=== PATIENT | female | born 1950 | race Caucasian/White ===

== ENCOUNTER 2020-03-04 11:59 | Outpatient (REF) | payer MEDICARE, SELFPAY | END 2020-03-04 12:00 | disposition home or self-care (01) | LOC: HO.WFDLDS 11:59 | PROVIDERS: Visit Provider Internal Medicine | DX: Z20.828 Contact with and (suspected) exposure to other viral communicable diseases (principal) | CPT/HCPCS: 36415; 87635 ==

== ENCOUNTER 2020-08-23 09:55 | Outpatient (REF) | payer MEDICARE, SELFPAY | END 2020-08-23 09:56 | disposition home or self-care (01) | LOC: HO.LAB 09:55 | PROVIDERS: Visit Provider Nurse Practitioner Family | DX: Z13.89 Encounter for screening for other disorder (principal) | CPT/HCPCS: 36415; U0003 ==

== ENCOUNTER 2020-08-23 09:56 | Outpatient (REF) | payer MEDICARE, SELFPAY ==
--- NOTE | ~2020-08-23 | XR_ITS ---
EXAMINATION: XR CHEST CLINICAL INFORMATION: Cough. COMPARISON: None TECHNIQUE: 2 views of the chest were obtained. FINDINGS: The lungs are well-expanded and clear of acute process. The heart size and pulmonary vascularity is normal. There are surgical ernesto in the left anterior axilla and chest wall from previous intervention. There is mild ventral spondylosis. No lytic process. XR/XR chest 2V IMPRESSION: Unremarkable chest exam.
== END 2020-08-23 09:57 | disposition home or self-care (01) ==
LOC: HO.HMGCX 09:56
PROVIDERS: PCP Internal Medicine; Visit Provider Nurse Practitioner Family
DX: R05 Cough (principal); J98.8 Other specified respiratory disorders
CPT/HCPCS: 36415; 71046; U0003

== ENCOUNTER 2020-10-04 10:23 | Outpatient (REF) | payer MEDICARE, SELFPAY ==
[2020-10-04 11:19] LABS: MANUAL DIFF FLAG NO
[2020-10-04 11:32] LABS: Basophils Percent Auto 0.4 % (0-2); Eosinophils Absolute Auto 0.3 X10*3/uL (0.0-0.4); Eosinophils Percent Auto 2.7 % (0-4); Hematocrit 43.7 % (37-47); Hemoglobin 14.2 g/dl (12.0-16.0); Imm Gran Abs Auto 0.04 X10*3/uL (0.00-0.03); Imm Gran Pct Auto 0.4 % (0.0-0.4); Lymphocytes Absolute Auto 2.4 X10*3/uL (1.2-4.9); Lymphocytes Percent Auto 25.6 % (20-40); Mean Corpuscular HGB Conc 32.5 g/dl (31.0-35.0); Mean Corpuscular Hemoglobin 31.3 pg (27.0-33.0); Mean Corpuscular Volume 96.5 fL (80-98); Mean Platelet Volume 10.3 fL (9.4-12.3); Monocytes Absolute Auto 0.6 X10*3/uL (0.1-1.2); Monocytes Percent Auto 6.6 % (2-11); Neutrophils Absolute Auto 5.9 X10*3/uL (2.0-8.3); Neutrophils Percent Auto 64.3 % (45-73); Platelet Count 291 X10*3/uL (160-400); Red Blood Count 4.53 X10*6/uL (4.20-5.50); Red Cell Distribution Width 13.3 % (11.0-16.0); White Blood Count 9.2 X10*3/uL (4.8-10.8)
[2020-10-04 12:05] LABS: Alanine Aminotransferase 37 U/L (0-31); Albumin Level 4.2 g/dL (3.5-5.0); Alkaline Phosphatase 100 U/L (39-117); Anion Gap 11 (12-20); Aspartate Amino Transferase 29 U/L (5-31); Bilirubin Total 0.5 mg/dL (0.0-1.0); Blood Urea Nitrogen 16 mg/dL (9-16); Calcium 9.4 mg/dL (8.4-10.2); Carbon Dioxide 28 mmol/L (22-29); Chloride 102 mmol/L (96-108); Cholesterol 225 mg/dL; Estimated Glomerular Filt Rate > 60; Glucose Fasting 100 mg/dL (60-99); HDL Cholesterol 53 mg/dL; LDL Cholesterol Calculated 136 mg/dl; Potassium 4.4 mmol/L (3.3-5.1); Sodium 137 mmol/L (135-145); Total Protein 7.6 g/dL (6.5-8.0); Triglycerides 183 mg/dL
[2020-10-04 12:07] LABS: TSH reflex Free T4 1.67 uIU/mL (0.32-4.0); Vitamin D 25-OH Total 49.5 ng/mL (>30)
== END 2020-10-04 10:24 | disposition home or self-care (01) ==
LOC: HO.HMGCLDS 10:23
PROVIDERS: PCP Internal Medicine; Visit Provider Internal Medicine
DX: E78.00 Pure hypercholesterolemia, unspecified (principal); E66.9 Obesity, unspecified; K21.9 Gastro-esophageal reflux disease without esophagitis
CPT/HCPCS: 36415; 80053; 80061; 82306; 84443; 85025

== ENCOUNTER 2020-10-06 10:32 | Outpatient (REF) | payer MEDICARE, OTHER, SELFPAY ==
--- NOTE | ~2020-10-06 | US_ITS ---
EXAMINATION: US ABDOMEN COMPLETE CLINICAL INFORMATION: Right upper quadrant pain. COMPARISON: None TECHNIQUE: Real-time imaging of the abdominal viscera. FINDINGS: PANCREAS: Normal. ABDOMINAL AORTA: The proximal, mid, and distal segments are normal in caliber. INFERIOR VENA CAVA: Visualized portions are normal. LIVER: Liver echotexture is increased probably representing fatty infiltration. There are hypoechoic areas adjacent gallbladder, a characteristic location of fatty sparing. No other focal lesion is seen. The liver is normal in size and shape. There is no biliary duct dilatation. GALLBLADDER: the gallbladder is normal in size. There is echogenic dependent material seen in the gallbladder questionable for sludge versus small stones. Gallbladder wall is normal. There is no pericholecystic fluid. COMMON BILE DUCT: Normal in caliber measuring 0.34 cm in diameter. RIGHT KIDNEY: There are 2 small cysts measuring 1.3 x 1.3 cm upper pole and 1.8 x 1.1 x 1.4 cm in the midpole. There is an echogenic density with twinkle artifact measuring 7 x 4 x 6 mm in the midpole questionable for a stone. No hydronephrosis or focal parenchymal lesions. The kidney measures 10.0 cm in maximum dimension. LEFT KIDNEY: There is a 2.8 x 2.5 x 1.9 cm cyst in the upper pole. No hydronephrosis or renal calculi. The kidney measures 10.0 cm in maximum dimension. SPLEEN: Normal. The spleen measures 8.7 cm in maximum dimension. FREE FLUID: None. US/US abdomen complete IMPRESSION: Echogenic liver probably representing fatty infiltration. Question sludge versus small stones. Gallbladder wall is normal and there is no pericholecystic fluid. Bilateral renal cysts. Probable right renal stone.
== END 2020-10-06 10:33 | disposition home or self-care (01) ==
LOC: HO.HMGCX 10:32
PROVIDERS: Visit Provider Internal Medicine
DX: R10.11 Right upper quadrant pain (principal)
CPT/HCPCS: 76700

== ENCOUNTER 2025-04-02 13:07 | Emergency (ER) | payer MEDICARE, SELFPAY ==
--- NOTE | 2025-04-02 | ECG_ITS ---
Test Reason : SOB Blood Pressure : */* mmHG Vent. Rate : 63 BPM Atrial Rate : 63 BPM P-R Int : 160 ms QRS Dur : 86 ms QT Int : 400 ms P-R-T Axes : 11 -11 150 degrees QTcB Int : 409 ms Normal sinus rhythm Left ventricular hypertrophy with repolarization abnormality ( R in aVL , Jackson product ) Abnormal ECG No previous ECGs available Referred By: Jhonatan Thibodeaux Electronically Signed By: DAV RG
--- NOTE | ~2025-04-02 | XR_ITS ---
EXAMINATION: XR CHEST CLINICAL INFORMATION: cough, wheeze, smoking hx COMPARISON: August 23, 2020 TECHNIQUE: PA and lateral views. FINDINGS: No hyperinflation. No consolidation, pleural effusion or pneumothorax. Cardiomediastinal silhouette size is normal with a round apex. Multilevel thoracolumbar spondylosis. Vascular clips in the left breast and likely mediastinum and right lower hemithorax. XR/XR chest 2V IMPRESSION: No acute airspace disease. Stable chest. Electronically signed by: Timothy Garber MD 04/02/2025 02:23 PM EDT
[2025-04-02 13:22] VITALS: BP 140/100; BP 147/78; PULSE 72; PULSE 74; RESP 20; TEMP 36.8; O2SAT 100; O2SAT 95; BMI 34.4
[2025-04-02 13:29] VITALS: BP 147/78; PULSE 74; RESP 20; TEMP 36.8; O2SAT 95
--- NOTE | 2025-04-02 14:04 | ED.SOB ---
HPI - SOB/Dyspnea General Chief Complaint: Dyspnea Stated Complaint: SOB,COUGH X3D,FROM URG CARE PER EMS Time Seen by Provider: 04/02/25 13:24 History of Present Illness ED Provider: Jhonatan Thibodeaux MD HPI Narrative: 74-year-old female tobacco smoking history, GERD, overweight, hypercholesterolemia gallstone history with a 2-3 days of cough some mild pleuritic pain only with coughing. No leg swelling no significant chest pain. Hypoxic to 85 in urgent care was sent here for evaluation. Denies hemoptysis or phlegm production. Slight decreased p.o. intake. No measured fever Related Data Home Medications ?Medication ?Instructions ?Recorded ?Confirmed ipratropium bromide 21 mcg (0.03 2 spray intranasal TID 08/23/20 %) nasal spray omeprazole 20 mg capsule,delayed 20 mg PO DAILY 08/23/20 release valacyclovir 500 mg tablet 500 mg PO DAILY 08/23/20 albuterol sulfate 90 mcg/actuation 1 inh inhalation QID 10/01/20 aerosol inhaler ascorbic acid (vitamin C) 1,000 mg 1,000 mg PO Q12H 10/01/20 tablet,extended release cholecalciferol (vitamin D3) 50 50 mcg PO DAILY 10/01/20 mcg (2,000 unit) capsule elderberry fruit 200 mg capsule mg PO 10/01/20 garlic 1,000 mg capsule 1,000 mg PO DAILY 10/01/20 lactase 9,000 unit tablet (Dairy 9,000 unit PO QID PRN 10/01/20 Digestive Supplement) lactobacillus combination no.9 4 4,000 mmu cells PO DAILY 10/01/20 billion cell capsule (Adult 50 Plus Probiotic) zinc 50 mg tablet 50 mg PO DAILY 10/01/20 Previous Rx's ?Medication ?Instructions ?Recorded ondansetron 4 mg disintegrating 4 mg PO Q6H PRN nausea and 08/23/20 tablet vomiting #20 tabs acyclovir 5 % topical ointment 1 appl topical 6XD #5 grams 01/17/21 fluocinonide 0.05 % topical cream 1 appl topical BID 10 days #15 01/17/21 grams albuterol sulfate 90 mcg/actuation 2 puff inhalation Q6H PRN 04/02/25 aerosol inhaler shortness of breath or wheezing #8.5 grams prednisone 20 mg tablet 60 mg (3 x 20 mg) PO DAILY 2 days 04/02/25 #6 tabs Allergies Allergy/AdvReac Type Severity Reaction Status Date / Time latex AdvReac swells Verified 04/02/25 13:25 strawberry AdvReac swells Verified 04/02/25 13:25 Sulfa AdvReac Unknown Anaphylaxis Uncoded 04/02/25 13:25 [facility] Past Medical History Medical History (Updated 04/02/25 @ 16:42 by Jhonatan Thibodeaux MD) Gallstones Recurrent herpes simplex Right upper quadrant abdominal pain Postmenopause Hypercholesterolemia Obesity History of COVID-19 Chronic GERD History of right breast cancer Surgical History Hx of colonoscopy Hx of section Hx of bilateral mastectomy Family History Family History Father No problems noted. Mother Diabetes mellitus Social History Social History Alcohol intake: current Alcohol intake frequency: holidays/special occasions only Alcohol type: hard liquor Substance Use Type: Marijuana Physical Exam Exam: Exam: EXAM: Gen: Alert, awake, well appearing, well hydrated. Head: Atraumatic Eyes: Anicteric, Normal conjunctiva. ENT: Moist mucosa, no pallor. ? Neck: Supple. Skin: ?No observable rash or bruising on exposed or examined skin Respiratory: Breathing comfortably, No distress. Mild scattered expiratory only wheeze course Cardiovascular: Regular rate and rhythm. No murmurs or rub. Well perfused periphery, warm extremities. No edema. ? Abdominal: No focal tenderness. Soft, no objective distension. No palpable masses or obvious organomegaly. ?No guarding, no rebound tenderness or other peritoneal findings. : No flank tenderness. Neuro: Alert. Gross movement of all extremities intact. ? Psych: Calm. Cooperative. MSK: No grossly visible deformity. Vital signs: See flowsheet Vital Signs: Vital Signs: Last Vital Signs Temp 98.2 F 04/02/25 17:20 Pulse 68 04/02/25 17:20 Resp 16 04/02/25 17:20 BP 134/67 04/02/25 17:20 Pulse Ox 96 04/02/25 17:20 O2 Del Method Room Air 04/02/25 17:20 BMI result Body Mass Index 34.4 Medications Administered Discontinued Medications Generic Name Dose Route Start Last Admin Trade Name Manish PRN Reason Stop Dose Admin Albuterol Sulfate 2 puff 04/02/25 14:03 04/02/25 14:22 Albuterol Sulfate 90 Mcg 8 Gm Inhaler INHALE 04/02/25 14:04 2 puff ONCE ONE Administration Guaifenesin 1,200 mg 04/02/25 14:03 04/02/25 14:23 Guaifenesin La 600 Mg Tab.Er.12h PO 04/02/25 14:04 1,200 mg ONCE ONE Administration Prednisone 40 mg 04/02/25 14:03 04/02/25 14:22 Prednisone 20 Mg Tablet PO 04/02/25 14:04 40 mg ONCE ONE Administration Medical Decision Making Medical Decision Making MDM Narrative: Medical Decision Making: [age] female previous smoker cough subjective shortness of breath for about 3 days. No phlegm or hemoptysis. Apparently 88% on room air at urgent care today was sent here for evaluation. Some mild scant wheeze no respiratory distress. She was given albuterol MDI, steroid in the ED. Chest x-ray without focal infiltrate. The patient looks euvolemic doubt CHF she has got no cardiac history. No chest pain. Repeatedly monitored with no oxygen saturations in the ED on room air below 95%. Patient was reassured. I encouraged PCP follow up may need pulmonology for PFTs given the smoking history wheeze. Could be viral URI/bronchitis. MD I am brief prednisone course reasonable Preliminary Favored Differential Diagnosis: URI, bronchitis, underlying COPD, pneumonia without SIRS/sepsis criteria among additional considered etiologies Testing Interpreted Independently: Sinus rhythm rate 63 QTC 409. No acute ischemic changes Radiology or Lab testing Results Reviewed: ?See below for details Consults: ?See below for details Independent Historians/External Chart Reviews: ?See below for details Social Determinants of Health Impacting MDM/Planning: ?See below for details Lab Data 04/02/25 14:53 04/02/25 12:45 Labs: Lab Results 04/02/25 04/02/25 04/02/25 Range/Units 12:45 14:40 14:53 WBC 8.1 (4.8-10.8) X10*3/uL RBC 4.70 (4.20-5.50) X10*6/uL Hgb 14.5 (12.0-16.0) g/dl Hct 44.0 (37.0-47.0) % MCV 93.6 (80.0-98.0) fL MCH 30.9 (27.0-33.0) pg MCHC 33.0 (31.0-35.0) g/dl RDW 12.2 (11.0-16.0) % Plt Count 216 (160-400) X10*3/uL MPV 10.0 (9.4-12.3) fL Immature Gran % (Auto) 0.4 (0.0-0.4) % Neut % (Auto) 63.7 (45-73) % Lymph % (Auto) 24.6 (20-40) % Bandera % (Auto) 7.2 (2-11) % Eos % (Auto) 3.7 (0-4) % Baso % (Auto) 0.4 (0-2) % Lymph # (Auto) 2.0 (1.2-4.9) X10*3/uL Bandera # (Auto) 0.6 (0.1-1.2) X10*3/uL Eos # (Auto) 0.3 (0.0-0.4) X10*3/uL Baso # (Auto) 0.0 (0.0-0.2) X10*3/uL Abs Immat Gran (auto) 0.03 (0.00-0.03) X10*3/uL Absolute Neuts (auto) 5.1 (2.0-8.3) x10*3/uL Absolute Nucleated RBC 0.000 (0.0-0.012) X10*3/uL Nucleated RBC % (auto) 0.0 (0.0-0.2) /100WBC Sodium 139 (135-145) mmol/L Potassium 3.7 (3.3-5.1) mmol/L Chloride 105 (96-108) mmol/L Carbon Dioxide 26 (22-29) mmol/L Anion Gap 12 (12-20) BUN 12 (9-16) mg/dL Creatinine 0.70 (0.5-1.4) mg/dL Estim Creat Clear Calc 72.5 Estimated GFR > 60 Random Glucose 123 H (60-115) mg/dL Calcium 9.3 (8.4-10.2) mg/dL Total Bilirubin 0.3 (0.0-1.0) mg/dL AST 29 (5-31) U/L ALT 28 (0-31) U/L Alkaline Phosphatase 112 (39-117) U/L Troponin I High Sens < 2.7 (<3.5-17.0) ng/L Total Protein 8.1 H (6.5-8.0) g/dL Albumin 4.4 (3.5-5.0) g/dL COVID-19 (KATARINA) Negative (Negative) COVID-19 Clin Com See Note Influenza Type A (RONALD) Negative (Negative) Influenza Type B (RONALD) Negative (Negative) Influenza A & B Note See Note Discharge Plan Discharge Clinical Impression: URI, acute Patient Disposition: Home, Self-Care Instructions: Acute Bronchitis (ED) Additional Instructions: Today in the emergency department you were evaluated for low oxygen and cough. Given your smoking history you may have underlying lung damage this can not be tested for in the emergency department you need to see a pulmonary doctor as an outpatient. You did have some mild wheeze you did not have a pneumonia or other acute findings on x-ray and your lab work and EKG were reassuring. You did not have persistent low oxygen levels and we will send you home with a albuterol pump and steroid Prescriptions: New prednisone 20 mg tablet 60 mg PO DAILY 2 Days Qty: 6 0RF albuterol sulfate 90 mcg/actuation HFA aerosol inhaler 2 puff inhalation Q6H PRN (Reason: shortness of breath or wheezing) Qty: 8.5 0RF No Action fluocinonide 0.05 % cream 1 appl topical BID 10 Days Qty: 15 0RF acyclovir 5 % ointment 1 appl topical 6XD Qty: 5 2RF omeprazole 20 mg capsule,delayed release(DR/EC) 20 mg PO DAILY valacyclovir 500 mg tablet 500 mg PO DAILY ipratropium bromide 21 mcg (0.03 %) spray,non-aerosol 2 spray intranasal TID ondansetron 4 mg tablet,disintegrating 4 mg PO Q6H PRN (Reason: nausea and vomiting) Qty: 20 0RF albuterol sulfate 90 mcg/actuation HFA aerosol inhaler 1 inh inhalation QID cholecalciferol (vitamin D3) 50 mcg (2,000 unit) capsule 50 mcg PO DAILY elderberry fruit 200 mg capsule PO zinc 50 mg tablet 50 mg PO DAILY garlic 1,000 mg capsule 1,000 mg PO DAILY ascorbic acid (vitamin C) 1,000 mg tablet extended release 1,000 mg PO Q12H Adult 50 Plus Probiotic 4 billion cell capsule 4,000 mmu cells PO DAILY Rx Instructions: administer with a meal Dairy Digestive Supplement 9,000 unit tablet 9,000 unit PO QID PRN Rx Instructions: administer with meals and/or snacks Interventions: ED Discharge Assessment Last Done: 04/02/25 17:20 Discharge Date/Time: 04/02/25 17:37 Print Language: Divehi
[2025-04-02] MEDS: Albuterol Sulfate 90 MCG 8 GM INHALER 2 PUFF INHALE (14:22)
[2025-04-02] MEDS: guaiFENesin LA 600 MG TAB.ER.12H 1200 MG PO (14:23)
[2025-04-02 14:27] VITALS: PULSE 63; RESP 18; O2SAT 98
[2025-04-02 14:58] LABS: MANUAL DIFF FLAG NO
[2025-04-02 15:03] LABS: Hematocrit 44.0 % (37.0-47.0); Hemoglobin 14.5 g/dl (12.0-16.0); Imm Gran Abs Auto 0.03 X10*3/uL (0.00-0.03); Imm Gran Pct Auto 0.4 % (0.0-0.4); Lymphocytes Absolute Auto 2.0 X10*3/uL (1.2-4.9); Mean Corpuscular HGB Conc 33.0 g/dl (31.0-35.0); Mean Corpuscular Hemoglobin 30.9 pg (27.0-33.0); Mean Corpuscular Volume 93.6 fL (80.0-98.0); NRBC Abs Auto 0.000 X10*3/uL (0.0-0.012); NRBC Pct Auto 0.0 /100WBC (0.0-0.2); Platelet Count 216 X10*3/uL (160-400); Red Blood Count 4.70 X10*6/uL (4.20-5.50); White Blood Count 8.1 X10*3/uL (4.8-10.8)
[2025-04-02 15:07] LABS: COVID-19 Test Negative (Negative); IDNOW Serial# 55D5AD1C; IDNOW Serial# 58CA691E; Influenza B2 Negative (Negative)
[2025-04-02 15:24] LABS: Alanine Aminotransferase 28 U/L (0-31); Albumin Level 4.4 g/dL (3.5-5.0); Alkaline Phosphatase 112 U/L (39-117); Anion Gap 12 (12-20); Aspartate Amino Transferase 29 U/L (5-31); Blood Urea Nitrogen 12 mg/dL (9-16); Calcium 9.3 mg/dL (8.4-10.2); Carbon Dioxide 26 mmol/L (22-29); Chloride 105 mmol/L (96-108); Creatinine Clr Calc Pharmacy 72.5; Estimated Glomerular Filt Rate > 60; Potassium 3.7 mmol/L (3.3-5.1); Sodium 139 mmol/L (135-145); Total Protein 8.1 g/dL (6.5-8.0)
[2025-04-02 15:50] VITALS: BP 139/66; PULSE 71; RESP 18; O2SAT 96
[2025-04-02 16:17] LABS: Troponin-I High Sensitivity < 2.7 ng/L (<3.5-17.0)
--- OUTSIDE RECORDS SUMMARY | 2025-04-02 16:47 | XMS_ITS | Clinical Summary ---
Author Organization [facility] Address [address] [place] [address] Care Team Providers Care Dredge Boat Engineer Name Role Phone Pcp, No Primary Care Provider Unavailabl e Allergies No known active allergies Medications methocarbamol (ROBAXIN) 750 MG tabletIndications:R adiculopathy, lumbosacral region,Other intervertebral disc displacement, lumbar region Take 1 tablet (750 mg total) by mouth 4 (four) times a day. 60 tablet 8 5 10/07/19 26 Active Active Problems No known active problems Encounters Date Type Department Care Team Description 03/11/2025 Scanned Document Orthopedic [address] [phone] Bettina Rankin MD 02/27/2025 10:30 AM EDT [place] [address] Bettina Rankin MD Other intervertebral disc displacement, lumbar region (Primary Dx); Spinal stenosis of lumbar region with neurogenic claudication 01/23/2025 1:00 PM EDT [place] [address] Bettina Rankin MD Spinal stenosis of lumbar region with neurogenic claudication (Primary Dx); Radiculopathy, lumbosacral region; Other intervertebral disc displacement, lumbar region 01/09/2025 Refill Orthopedic [facility] [address] [phone] Castillo Javier MD Radiculopathy, lumbosacral region; Other intervertebral disc displacement, lumbar region from Last 3 Months Social History Tobacco Use Types Packs/Day Years Used Date Smoking Tobacco: Never Assessed Comments Unknown Sex and Gender Information Value Date Recorded Sex Assigned at Not on file Legal Sex Female 1:37 PM EDT Gender Identity Not on file Sexual Orientation Not on file Last Filed Vital Signs Vital Sign Reading Time Taken Comments Blood Pressure 156/76 11/13/2024 11:08 AM EDT Pulse 62 11/13/2024 11:08 AM EDT Temperature - - Respiratory Rate - - Oxygen Saturation 97% 11/13/2024 11:08 AM EDT Inhaled Oxygen Concentration - - Weight 85.3 kg (188 lb) 11/13/2024 11:08 AM EDT Height 157.5 cm (5' 2 ) 11/13/2024 11:08 AM EDT Body Mass Index 34.39 11/13/2024 11:08 AM EDT Plan of Treatment Upcoming Encounters Date Type Department Care Team (Late st Contact Info) Description 05/08/2025 10:00 AM EST Office Visit [facility] [address] Bettina Rankin MD [address] [place] [address] Health Maintenance Due Date Last Done Comments Advance Care Planning 1950 Hepatitis C Virus Screening 1950 DTaP/Tdap/Td Vaccines (1 - Tdap) 1970 Mammogram 1991 Colonoscopy 1996 Pneumococcal Vaccines 50+ (1 of 1 - PCV) 2001 Zoster (Shingles) Vaccine (1 of 2) 2001 Influenza Vaccine 01/02/2025 02/11/2009 COVID-19 Vaccine ( - 2023-2 5 season) 2025 DXA Bone Density (Females,Ag es 65 and older) 11/05/2025 11/06/2023 RSV Vaccine 50 years and old er and Patients (1 - 1-dose 75+ series) 2026 Hepatitis B Vaccines Aged Out No long er eligible based on patient's age to complete this topic Insurance [facility] WORK[employer] Member Subscriber Plan / Payer (Ef fective 2024-Present) Name:Najma Campos Member ID:[id number] Relation to Subscriber:Employee Name:[employer] Subscriber ID:[id number] Date of : Address: [address] [place] [id number] Payer ID:Not on file Group ID:Not on file Type:Workers Compensation Address: [address] [address] Care Teams Dredge Boat Engineer Relationship Specialty Start Date End Date Pcp, No PCP - General General Medicine 08/29/24
--- OUTSIDE RECORDS SUMMARY | 2025-04-02 16:47 | XMS_ITS | Patient Health Record ---
Author Organization [facility] Address [address] [place] [address] Care Team Providers Care Bulk Sealer Name Role Phone SALLY PETERS Primary Care Provider PHILLIP Acosta Unavailable [phone] Reason For Referral No Information Plan Of Treatment No Information Insurance Providers Payer Name Payer Address Payer Phone Subscriber Number Group Number Insured Name Patient Relationship to Insured Coverage Start Date Coverage End Date [facility] [address] [place] [id number] [address]OX Self - patient is the insured
--- OUTSIDE RECORDS SUMMARY | 2025-04-02 16:47 | XMS_ITS | Encounter Summary ---
Author Organization [facility] Address [address] [place] [address] Care Team Providers Care Cable Television Installer Name Role Phone Pcp, No Primary Care Provider Unavailabl e Encounter Details Date Type Department Care Team (Late st Contact Info) Description 10/01/2024 Scanned Document [facility] [address] [phone] Bettina Rankin MD [address] [place] [id number] Social History Tobacco Use Types Packs/Day Years Used Date Smoking Tobacco: Never Assessed Comments Unknown Sex and Gender Information Value Date Recorded Sex Assigned at Not on file Legal Sex Female 1:37 PM EDT Gender Identity Not on file Sexual Orientation Not on file documented as of this encounter Plan of Treatment Upcoming Encounters Date Type Department Care Team (Late st Contact Info) Description 05/08/2025 10:00 AM EST Office Visit Orthopedic [address] [address] Bettina Rankin MD [address] [place] [id number] documented as of this encounter Visit Diagnoses Not on filedocumented in this encounter Care Teams Cable Television Installer Relationship Specialty Start Date End Date Pcp, No PCP - General General Medicine 08/29/24 documented as of this encounter
--- OUTSIDE RECORDS SUMMARY | 2025-04-02 16:47 | XMS_ITS ---
Author Name [facility] Organization Unknown History of Medication Use Medication Directions Dispensed Refills Start Date End Date Stat methocarbamol (ROBAXIN) 750 MG tablet Take 1 tablet (750 mg total) by mouth 4 (four) times a day. 09/02/2024 active Problems Problem Status Onset Date Problem Type Date of Resolution Source Spinal stenosis of lumbar region with neurogenic claudication active EncounterDiagnosisAct CCT Other intervertebral disc displacement, lumbar region active [facility] En[facility] Encounter Type Encounter Reason Primary Diagnosis Location Date Ambulatory Other intervertebral disc displacement, lumbar region Other intervertebral disc displacement, lumbar region Immediately 02/27/2025 Ambulatory Spinal stenosis, lumbar region with neurogenic claudication Spinal stenosis, lumbar region with neurogenic claudication Immediately 01/23/2025 Ambulatory MODIFY Radiculopathy, l umbar region [facility] 12/24/2024 Ambulatory Pain Pain Immediately 11/13/2024 Ambulatory Other intervertebral disc displacement, lumbar region Other intervertebral disc displacement, lumbar region Immediately 09/26/2024 Ambulatory Immediately 08/29/2024 Ambulatory Radiculopathy, lumbosacral region Radiculopathy, lumbosacral region Immediately 08/29/2024 Care Team Organization Name Specialty Phone Email Start Date End Da te [facility] 11/24/2024 Immediately PCP Incendiaries Supervisor 11/13/2024 03/29/2025 Immediately 09/02/2024 03/29/2025 Immediately NO PCP Primary Care 08/29/2024 Immediately 08/14/2024
--- OUTSIDE RECORDS SUMMARY | 2025-04-02 16:47 | XMS_ITS | Clinical Summary ---
Author Organization [facility] [place] [facility] Address [address] [place] [address] Phone Care Team Providers Care Strap Making Machine Operator Name Role Phone Najma Pickard MD Primary Care Provider + [phone] Allergies Active Allergy Reactions Criticality Noted Date Comments Latex, Natural Rubber Unknown 02/28/2010 Phs Other Free Text-See Phs Viewer 0 02/28/2010 TEQUILA Lucio 03/12/2019 [place] Unknown 02/28/2010 Sulfa (Sulfonamide Antibiotics) Rash,Unknown Medications fexofenadine (FER) 180 MG tablet Take 180 mg by mouth daily. Active HAWTHORN ORAL Take by mouth. A ctive Medication-Free Text bio identical horomones Active GARLIC ORAL Take by mouth. Act alf ipratropium (ATROVENT) 0.03 % nasal spray 2 sprays by Nasal route 3 (three) times a day. 30 mL 12 0 Active Additional Information Patient not taking.Reported on 04/08/2021 omeprazole (PRILOSEC) 10 MG capsule Take 10 mg by mouth daily. Active acyclovir (ZOVIRAX) 800 MG tablet Take 800 mg by mouth 2 (two) times a day. Active triamcinolone acetonide 0.1 % cream Apply topically 2 (two) times a day. Layer over nystatin in rash areas 80 g 4 Active nystatin cream Apply topically. 4 Active clotrimazole-be tamethasone (LOTRISONE) cream Apply topically 2 (two) times a day. 30 g 5 Active Active Problems Problem Noted Date Diagnosed Date Pelvic pain 06/10/2019 Assessment & Plan (06/10/2019 3:54 PM EST): Unclear etiology of suprapubic pain. Patient in no obvious discomfort during exam. Question if VETERINARY MEAT INSPECTOR versus possible GI etiology. Discussed pelvic ultrasound and patient desires to proceed. If no obvious VETERINARY MEAT INSPECTOR etiology have suggested follow-up with PCP. Hypertension 05/12/2019 Encounters Date Type Department Care Team Description 01/05/2025 11:20 AM EDT Office Visit Livia Haji M.D. [address] [phone] Livia Haji MD Menopause (Primary Dx); Vulvitis due to chemical from Last 3 Months Immunizations Immunization Administration Dates Next Due INFLUENZA, SPLIT VIRUS, TRIV ALENT W/ PRESERVATIVE IM 02/11/2009 Influenza, Unspecified Formulation 03/01/2010(Mendoza: Patient Decision) Pneumococcal polysaccharide PPSV23 03/01/2010(Mendoza: Patient Decision) Tdap 08/09/2009 Family History Medical History Relation Comments Testicular cancer Brother done well Liver cancer Father of cancer a ge 65 Diabetes Mother Lung cancer Mother age 86 of o ther causes Thyroid disease Mother Diabetes type II Sister Hypothyroidism Sister Relation Status Comments Brother Alive Father Mother Sister Alive Social History Tobacco Use Types Packs/Day Years Used Date Smoking Tobacco: Every Day Cigarettes Started: 2016 Smokeless Tobacco: Never Tobacco Cessation:Ready to Q uit: Not Asked; Counseling Given: Not Answered Comments:2- cigarettes per week Alcohol Use Standard Drinks/Week Comments Yes 0 (1 standard drink = 0.6 oz pur e alcohol) Education Answer Date Recorded Are you interested in more education? Not on wily e 10/12/2022 Are you concerned about learning? Not on file 10/12/2022 No 10/12/2022 No 10/12/2022 Digital Access Answer Date Recorded No 10/29/2022 No 10/29/2022 Reliable internet access at home? Not on file 10/29/2022 Device with a working camera? Not on file Comments No Sex and Gender Information Value Date Recorded Sex Assigned at Female 10/10/2023 2:44 PM EDT Legal Sex Female 6:54 PM EST Gender Identity Female 10/10/2023 2:44 PM EDT Sexual Orientation Straight 10/10/2023 2: 44 PM EDT Occupation Industry Job Start Date Job End Date retired Not on file Not on file Not on file Last Filed Vital Signs Vital Sign Reading Time Taken Comments Blood Pressure 140/80 01/05/2025 12:12 PM EDT Pulse 72 01/03/2024 1:22 PM EDT Temperature 36.4 C (97.6 F) 07/18/2019 2:28 PM EST Respiratory Rate 16 01/03/2024 1:22 PM EDT Oxygen Saturation 98% 07/18/2019 2:28 PM EST Inhaled Oxygen Concentration - - Weight 86.2 kg (190 lb) 01/05/2025 12:12 PM EDT Height 153.7 cm (5' 0.5 ) 04/08/2021 10:39 AM ED T Body Mass Index 36.5 04/08/2021 10:39 AM EDT Plan of Treatment Upcoming Encounters Date Type Department Care Team (Late st Contact Info) Description 01/14/2026 11:00 AM EDT Office Visit Livia Haji M.D. [facility] [address] [place] [address] Livia Haji MD [address] [facility] [address] [place] [address] [email or web address] Health Maintenance Due Date Last Done Comments DEPRESSION SCREENING 1963 SMOKING Hx and SMOKELESS TOBACCO SCREENING 1964 HEPATITIS C SCREENING 1969 PNEUMOCOCCAL VACCINES (50+ years) (1 of 2 - PCV) 1970 COLOGUARD 1996 COLONOSCOPY 1996 COLORECTAL CANCER SCREENING 1996 FIT TEST 1996 FOBT 1996 SIGMOIDOSCOPY 1996 VIRTUAL COLONOSCOPY 1996 ZOSTER VACCINES (1 of 2) 2001 Adult Td,Tdap Booster 08/10/2019 08/09/2009 INFLUENZA VACCINE (#1) 2025 02/11/2009 COVID-19 VACCINE ( season) 2025 12/20/2020, 11/29/2020 BLOOD PRESSURE 07/08/2025 01/05/2025 RSV VACCINE (1 - 1-dose 75+ series) 2026 LIPID PANEL 09/24/2028 09/25/2023, 09/03, 04/03/2022, Additional history exists OSTEOPOROSIS SCREENING INITIAL (ONE-TIME) Completed 11/06/2023 HEPATITIS A VACCINES Aged Out No long er eligible based on patient's age to complete this topic HIB VACCINES Aged Out No longer eligi ble based on patient's age to complete this topic MENINGOCOCCAL VACCINES (ACWY) Aged Out No longer eligible based on patient's age to complete this topic MENINGOCOCCAL VACCINES (B) Aged Out N o longer eligible based on patient's age to complete this topic Medical Devices Not on file Insurance [place] [id number] [facility] PREF [facility] MEDICARE [place] [address] [address] [place] [address] FULL MEDICARE PART A & B [facility] MEDICARE REPLACEMENT Member Subscriber Plan / Payer (Ef fective 2023-Present) Name:Najma Campos Relation to Subscriber:Self Name:Najma Campos Payer ID:[id number] (NAIC) Group ID:[id number] Type:Medicare Address: [address] FULL MEDICARE PART A & B MEDICARE PART A & B MEDICARE PART A & B PREF VALUE MEDICARE REPLACEMENT [address] F[place]ICARE PART [place] [id number] [facility] MEDICARE REPLACEMENT [facility] FULL MEDICARE PART A & B [facility] MEDICARE REPLACEMENT Member Subscriber Plan / Payer (Ef fective 2023-Present) Name:Najma Campos Relation to Subscriber:Self Name:Najma Campos Payer ID:[id number] (IC) Group ID:[id number] Type:Medicare Address: [address] FULL MEDICARE PART A & B MEDICARE PART A & B [facility] PREF VALUE MEDICARE REPLACEMENT Member Subscriber Plan / Payer (Ef fective 2023-Present) Name:Najma Campos Relation to Subscriber:Self Name:Najma Campos Payer ID:[id number] (IC) Group ID:[id number] Type:Medicare Address: [address] FULL HEALTH SAFETY NET FULL MEDICARE REPLACEMENT Care Teams Strap Making Machine Operator Relationship Specialty Start Date End Date Najma Pickard MD [address] [place] [phone] [email or web address] PCP - General Internal Medicine 10/10/23 Additional Source Comments The information contained in this document represents components of the legal health record. It is not the complete legal health record.[facility] [place] [facility]
--- OUTSIDE RECORDS SUMMARY | 2025-04-02 16:47 | XMS_ITS | Encounter Summary ---
Author Organization [facility] Address [address] [place] [address] Care Team Providers Care Lens Cementer Name Role Phone Pcp, No Primary Care Provider Unavailabl e Encounter Details Date Type Department Care Team (Late st Contact Info) Description 12/24/2024 Scanned Document [facility] [address] [phone] Castillo Javier MD [address] [place] [phone] Social History Tobacco Use Types Packs/Day Years [...] 05/08/2025 10:00 AM EST Office Visit [facility] [address] [address] Bettina Rankin MD [address] [place] [phone] documented as of this encounter Visit Diagnoses Not on filedocumented in this encounter Care Teams Lens Cementer Relationship Specialty Start Date End Date Pcp, No PCP - General General Medicine 08/29/24 documented as of this encounter
--- OUTSIDE RECORDS SUMMARY | 2025-04-02 16:47 | XMS_ITS | Encounter Summary ---
Author Organization [facility] Address [address] [place] [phone] Care Team Providers Care Gas Pump Attendant Name Role Phone Pcp, No Primary Care Provider Unavailabl e Encounter Details Date Type Department Care Team (Late st Contact Info) Description 03/11/2025 Scanned Document [facility] [address] [phone] Bettina Rankin MD [address] [place] [phone] Social History Tobacco Use Types Packs/Day Years [...] 05/08/2025 10:00 AM EST Office Visit [facility] [address] [address] Bettina Rankin MD [address] [place] [phone] documented as of this encounter Visit Diagnoses Not on filedocumented in this encounter Care Teams Gas Pump Attendant Relationship Specialty Start Date End Date Pcp, No PCP - General General Medicine 08/29/24 documented as of this encounter
[2025-04-02 17:20] VITALS: BP 134/67; PULSE 68; RESP 16; TEMP 36.8; O2SAT 96
== END 2025-04-02 17:37 | disposition home or self-care (01) ==
PROVIDERS: Emergency Provider Emergency Medicine
DX: J06.9 Acute upper respiratory infection, unspecified (principal); R06.02 Shortness of breath; F17.210 Nicotine dependence, cigarettes, uncomplicated; Z03.818 Encounter for observation for suspected exposure to other biological agents ruled out
CPT/HCPCS: 36415; 71046; 80053; 84484; 85025; 87502; 87635; 93005; 94640; 99284; 99285

== ENCOUNTER → 2025-04-02 14:03 | Outpatient (BNV) | payer MEDICARE, SELFPAY | PROVIDERS: Emergency Provider Emergency Medicine; Visit Provider Radiology Diagnostic Radiology | DX: R05.9 Cough, unspecified (principal); R06.2 Wheezing; Z87.891 Personal history of nicotine dependence | CPT/HCPCS: 71046 ==

== ENCOUNTER → 2025-04-02 14:29 | Outpatient (BNV) | payer MEDICARE, SELFPAY | PROVIDERS: Emergency Provider Emergency Medicine; Visit Provider Internal Medicine | DX: I51.7 Cardiomegaly (principal) | CPT/HCPCS: 93010 ==